=== PATIENT | female | born 1990 ===

== ENCOUNTER 2018-12-01 14:57 | Emergency (ER) | payer SELFPAY ==
[~2018-12-01] VITALS: Ht 162.6 cm; Wt 62.6 kg
[2018-12-01 15:11] VITALS: BP 114/81; PULSE 97; RESP 20; Ht 162.6 cm; Wt 62.6 kg
== END 2018-12-01 16:36 | disposition left against medical advice (07) ==
LOC: FTE 14:57
DX: Z53.21 Procedure and treatment not carried out due to patient leaving prior to being seen by health care provider (principal)